=== PATIENT | female | born 1960 | race Caucasian/White ===

== ENCOUNTER 2019-12-06 21:06 | Emergency (ER) | payer OTHER ==
[~2019-12-06] VITALS: Ht 154.9 cm; Wt 84.5 kg
[2019-12-06 21:24] VITALS: BP 130/75
--- NOTE | 2019-12-06 22:51 | NUR ---
59 Y/O MALE C/O LT RIB PAIN S/P MECHANICAL FALL X MONDAY AT WORK. SHARP PAIN THAT INCREASES WITH DEEP BREATHING. PAIN IS A 10/10 SHARP PAIN THAT IS PROVOKED WITH MOVEMENT. CLEAR LUNG SOUNDS HEARD THROUGHOUT. DENIES N/V/D. PATIENT STATES, " I HEARD A CRACK AFTER I FELL". PATIENT STATED THAT SHE ALSO FELL ON HEAD; NO TRAUMA; PERRLA +2; A/OX3; FOLLOWS COMMANDS. ERMD MADE AWARE OF STATUS. SIDE RAILSX1. WILL CONTINUE TO MONITOR. PMH:DM, HTN, CHOLESTEROL RX: METFORMIN; LISINOPRL; CARVIDELOL; ASPIRIN
--- NOTE | 2019-12-06 22:51 | NUR ---
PT AMBULATED TO BED 11 WITH STEADY GAIT AT THIS TIME
[2019-12-07 01:42] VITALS: BP 130/75
--- NOTE | 2019-12-07 01:42 | NUR ---
Patient discharged with v/s stable. Written and verbal after care instructions given and explained. Patient alert, oriented and verbalized understanding of instructions. Ambulatory with steady gait. All questions addressed prior to discharge. ID band removed. Patient advised to follow up with PMD. Rx of LIDOCAINE HYDROCHLORIDE, IBUPROFEN given. Patient educated on indication of medication including possible reaction and side effects. Opportunity to ask questions provided and answered.
== END 2019-12-07 01:42 | disposition home or self-care (01) ==
LOC: MED 21:06
DX: S29.011A Strain of muscle and tendon of front wall of thorax, initial encounter (principal); E11.9 Type 2 diabetes mellitus without complications; I10 Essential (primary) hypertension; W19.XXXA Unspecified fall, initial encounter; Y93.89 Activity, other specified; Y92.89 Other specified places as the place of occurrence of the external cause; Y99.0 Civilian activity done for income or pay
CPT/HCPCS: 71101; 99283

== ENCOUNTER 2023-12-28 10:54 | Emergency (ER) | payer MEDICAID, OTHER ==
[~2023-12-28] VITALS: Ht 152.4 cm; Wt 83.5 kg
[2023-12-28 11:01] VITALS: BP 159/90; PULSE 86; RESP 16; TEMP 97.5; O2SAT 96
[2023-12-28] MEDS: MORPHINE SULFATE 4 MG/ML SYR IM ONE (11:23)
[2023-12-28] MEDS ORDERED: ACET-8905 PO (12:10)
[2023-12-28] MEDS ORDERED: IBUP-2213 PO (12:10)
[2023-12-28 13:02] VITALS: BP 147/86; PULSE 73; RESP 14; TEMP 97.5; O2SAT 98
== END 2023-12-28 13:02 | disposition home or self-care (01) ==
LOC: MED 10:54
DX: M79.602 Pain in left arm (principal); M25.512 Pain in left shoulder; M25.522 Pain in left elbow; E11.9 Type 2 diabetes mellitus without complications; I10 Essential (primary) hypertension; F17.200 Nicotine dependence, unspecified, uncomplicated; F12.90 Cannabis use, unspecified, uncomplicated; Z90.49 Acquired absence of other specified parts of digestive tract
CPT/HCPCS: 73030; 73080; 96372; 99284; J2270